=== PATIENT | male | born 1995 | race Caucasian/White ===

== ENCOUNTER 2017-10-12 03:36 | Emergency (ER) | payer SELFPAY ==
[2017-10-12] MEDS ORDERED: TETANUS & DIPHTHERIA TOX,ADULT 0.5 ML VIAL ONE (04:10)
[2017-10-12] MEDS ORDERED: LIDOCAINE 1% MPF 5 ML VIAL ONE ×2 (05:09→05:17)
[2017-10-12] MEDS ORDERED: NA CHLORIDE 0.9% 1,000 ML ONE (05:31)
[2017-10-12] MEDS ORDERED: MULTIVITAMINS 10 ML VIAL (INJ) IV ONE ×2 (05:31)
[2017-10-12] MEDS ORDERED: THIAMINE 200 MG/2 ML INJ ONE (05:32)
[2017-10-12] MEDS ORDERED: FOLIC ACID 5 MG/ML VIAL ONE (05:33)
[2017-10-12 05:42] LABS: Absolute Lymphocytes (CBC) 2.1 K/uL (0.7-4.9); Absolute Monocytes 0.8 K/uL (0.1-1.3); Absolute Neutrophil 8.7 K/uL (1.8-8.0); Basophils % 0.2 % (0-1.3); Eosinophils % 0.1 % (0-4.4); Hematocrit 40.9 % (39.6-49.0); Lymphocytes % 18.2 % (15.3-44.8); MCH 28.4 pg (27.0-35.0); MPV 8.7 fL (7.6-11.3); Monocytes % 6.7 % (3.3-12.3); RBC Red Blood Cell Count 4.81 M/uL (4.33-5.43)
[2017-10-12 05:53] LABS: Potassium 3.7 mmol/L (3.5-5.1); Sodium Level 143 mmol/L (136-145)
[2017-10-12 05:54] LABS: ALT/SGPT 16 U/L (12-78); AST/SGOT 26 U/L (15-37); Albumin 3.9 g/dL (3.4-5.0); Alkaline Phosphatase 83 U/L (45-117); BUN Blood Urea Nitrogen 7 mg/dL (7-18); Bicarbonate 27 mmol/L (21-32); Bilirubin Direct < 0.1 mg/dL (0-0.2); Bilirubin Total 0.2 mg/dL (0.2-1.0); Glucose Level 102 mg/dL (74-106); Protein, Total 7.4 g/dL (6.4-8.2)
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
[2017-10-12] MEDS ORDERED: CEPHALEXIN 250 MG CAP ONE (06:44)
[2017-10-12 06:54] VITALS: TEMP 97.2
[2017-10-12 06:57] VITALS: BP 105/86; O2SAT 98
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
== END 2017-10-12 06:49 | disposition home or self-care (01) ==
LOC: ER 03:36
PROC: 0JQ10ZZ Repair Face Subcutaneous Tissue and Fascia, Open Approach (ICD-10-PCS; principal; 2017-10-12)
DX: S01.81XA Laceration without foreign body of other part of head, initial encounter (principal); W22.8XXA Striking against or struck by other objects, initial encounter; Y93.9 Activity, unspecified; Y92.9 Unspecified place or not applicable; Z23 Encounter for immunization; Z72.0 Tobacco use
CPT/HCPCS: 36415; 70450; 72125; 80048; 80076; 85025; 90714; 96365; 99285; J3411; J7030